=== PATIENT | female | born 1980 | race Hispanic/Latino ===

== ENCOUNTER 2016-09-09 08:39 | Emergency (ER) | payer OTHER ==
[~2016-09-09] VITALS: Ht 166.4 cm; Wt 87.1 kg
[~2016-09-09 08:39] MED LIST: GUAIFENESIN-COD10 ML PO; MEDROL4 M2 PO; MOTRIN600 MG PO; TESSALON PERLE100 M1 PO
--- NOTE | 2016-09-09 09:22 | ED UPPER/LOWER EXTREMITY COMPL ---
History of Present Illness General Chief Complaint: Lower Extremity Problems Stated Complaint: LEFT FOOT PROBLEM Source: patient Exam Limitations: no limitations Vital Signs & Intake/Output Vital Signs & Intake/Output Vital Signs Date Time Temp Pulse Resp B/P B/P Pulse O2 O2 Flow FiO2 Mean Ox Delivery Rate 09/09 0934 110/84 09/09 0844 97.2 65 16 106/66 98 Room Air Allergies Coded Allergies: NO KNOWN ALLERGIES (12/18/14) Reconcile Medications Levothyroxine Sodium 25 MCG TABLET 1 TAB PO DAILY AC THYROID (Reported) Meloxicam 15 MG TABLET 1 TAB PO DAILY PRN PAIN/INFLAMMATION Triage Note: PT STATES SHE IS HAVING PAIN IN HER LEFT HEEL. PT STATES SHE HAS TO WALK ON HER TOES THAT IS CAUSING PAIN IN HER RIGHT HIP. PT STATES SHE WOKE UP WITH IT HURTING SINCE FRIDAY Triage Nurses Notes Reviewed? yes Onset: Gradual Duration: constant Timing: recent history Severity: severe Severity Numbers: 7 : No Patient currently breastfeeds: No HPI: Patient is a 36-year-old female who presents emergency and that 4 days ago patient had a gradual onset of left behind ankle pain that was made worse with ambulation and better with rest. Patient denies any mechanism of injury. Denies any erythema warmth or redness or fever chills to the region. Patient states that she's been walking on her plantar aspect of the foot and limping because of the pain. Denies any foot swelling shortness of breath. Patient does state that she's been increasing her hours at work where she is ambulating and standing for multiple hours a day (TERENCE SMITH) Past History Travel History Traveled to [place] past 21 day No Medical History Any Pertinent Medical History? see below for history Respiratory: asthma Surgical History Surgical History: tubal ligation Psychosocial History What is your primary language [place] Tobacco Use: Never used ETOH Use: occasional use Illicit Drug Use: denies illicit drug use Family History Hx Contributory? No (TERENCE SMITH) Review of Systems Review of Systems Constitutional: Reports: no symptoms. EENTM: Reports: no symptoms. Respiratory: Reports: no symptoms. Cardiovascular: Reports: no symptoms. Gastrointestinal/Abdominal: Reports: no symptoms. Genitourinary: Reports: no symptoms. Musculoskeletal: Reports: see HPI, joint pain. Skin: Reports: no symptoms. Neurological/Psychological: Reports: no symptoms. Hematologic/Endocrine: Reports: no symptoms. Immunological: Reports: no symptoms. All Other Systems: Reviewed and Negative (TERENCE SMITH) Physical Exam Physical Exam General Appearance: no apparent distress, alert Neurologic/Tendon: normal sensation, normal motor functions, normal tendon functions, responds to pain, no evidence tendon injury, no pulse deficit Skin: intact, normal color, warm/dry Comments: Well-developed well-nourished no apparent distress. HEENT: Atraumatic, extraocular motion intact Neck: Supple, no lymphadenopathy Back: Nontender Respiratory: No respiratory distress Extremities: Left ankle normal inspection full active range of motion noted with pain with active range of motion of dorsiflexion. Point tenderness noted to insertion site of Achilles and calcaneus. No swelling no erythema no warmth to the region. 5 out of 5 resisted range of motion noted with plantar flexion with pain Left foot normal section nontender no swelling pedal pulse +2 dermatomes intact Neuro: Alert and oriented x3 Psych: Mood affect normal, normal memory normal judgment. (TERENCE SMITH) Progress Differential Diagnosis: arterial insufficiency, compartment syndrome, contusion, dislocation, DVT, fracture, gout, septic arthritis, sprain, tendon injury Plan of Care: Orders Procedure Date/time Status Durable Medical Equipment 09/09 1007 Active Due to history of present illness and exam findings patient has concerns of left Achilles tendinitis. No concerns at this time of DVT or cellulitis or infected joint. Patient has reproducible pain upon gastrocnemius movements. Patient was administered crutches for weightbearing as tolerated and strongly advised to follow-up with disposition and plan and she will comply. No osseous injury noted on x-rays (TERENCE SMITH) Diagnostic Imaging: Viewed by Me: Radiology Read. Radiology Impression: no acute abnormality, no fracture Comments: PATIENT: JOHN CARRIZALES PRESENT AGE: 36 PATIENT ACCOUNT NO: [id number] : 78 LOCATION: [facility] ORDERING PHYSICIAN: TERENCE LUCIANO SERVICE DATE: 09/09/16 EXAM TYPE: RAD - XRY-HEEL, LEFT EXAMINATION: XR CALCANEUS, LEFT CLINICAL INFORMATION: Pain upon ambulation. COMPARISON: None. TECHNIQUE: Lateral and axial views of the left calcaneus were obtained. FINDINGS: Bony alignment and mineralization are normal. Boehler's angle is normal. There are small posterior and plantar calcaneal spurs. The soft tissue planes are unremarkable, without foreign body. There is no left ankle joint effusion. IMPRESSION: 1. No acute fracture or dislocation is seen. 2. There are small posterior and plantar calcaneal spurs. (TERENCE SMITH) Departure Departure Disposition: HOME OR SELF CARE Condition: Stable Clinical Impression Primary Impression: Left Achilles tendinitis Referrals: ELIZABETH CARTER,GARY (PCP/Family) Additional Instructions: As discussed begin icing the area directly 20 minutes every 2 hours. begin the prescription meloxicam for pain and inflammation. Begin USING crutches until YOU can walk without pain. If symptoms worsen return to emergency room. PRESCRIPTIONS waiting at your [facility]. If no better in 5 days follow- up with your primary care doctor. Departure Forms: Customer Survey General Discharge Information Prescriptions: Current Visit Scripts Meloxicam 1 TAB PO DAILY PRN PAIN/INFLAMMATION #15 TAB (TERENCE SMITH) PA/OPERATIVE SUPERVISOR Co-Sign Statement Statement: ED Attending supervision documentation- [] I saw and evaluated the patient. I have also reviewed all the pertinent lab results and diagnostic results. I agree with the findings and the plan of care as documented in the PA's/OPERATIVE SUPERVISOR's documentation. [X] I have reviewed the ED Record and agree with the PA's/OPERATIVE SUPERVISOR's documentation. [] Additions or exceptions (if any) to the PAs/OPERATIVE SUPERVISOR's note and plan are summarized below: [] (BRADEN CARTER,YANELY)
[2016-09-09 09:34] VITALS: BP 110/84
[2016-09-09] MEDS ORDERED: LEVOTHYROXINE25 MCG PO (09:39)
[2016-09-09] MEDS ORDERED: MELOXICAM15 M1 PO (10:05)
== END 2016-09-09 10:20 ==
LOC: ERH 08:39
DX: M76.62 Achilles tendinitis, left leg (principal)
CPT/HCPCS: 73650-LT